=== PATIENT | female | born 1965 | race Caucasian/White ===

== ENCOUNTER 2016-11-02 06:14 | Inpatient (IN) | payer BC ==
--- NOTE | 2016-10-14 18:41 | HP ---
ADMISSION HISTORY AND PHYSICAL: DATE OF ADMISSION: 11/02/16 ATTENDING SURGEON: Dr. John العراقي. (dictated by MONCHO Jaramillo) CHIEF COMPLAINT: Morbid obesity. HISTORY OF PRESENT ILLNESS: This is a 51-year-old female, who presented to our office in April of 2016 for initial bariatric evaluation. Her weight and dietary history are outlined in her chart record. She has completed medically supervised weight loss through [facility] in our office utilizing the HMR program with resultant 40 pounds' weight loss. She has undergone full bariatric profile and lab profile, which showed a normal TSH and morning cortisol. Her other labs were also within normal ranges. She underwent EGD on 08/20/16 showing very mild gastritis and a a very small hiatal hernia with the biopsy CLOtest negative. She has met with Dr. العراقي on a number of occasions. He has reviewed with her the indications for surgery, the risks, benefits, and alternatives. She understands the expected perioperative course and has seen the dietitian for preoperative diet instruction. She would like to proceed as scheduled with laparoscopic Dennis-en-Y gastric bypass. PAST MEDICAL HISTORY: Morbid obesity, hypertension, type 2 diabetes, sleep- related hypopnea (did not tolerate CPAP), hypothyroidism, depression, osteoarthritis, retinal detachment. PAST SURGICAL HISTORY: She has had bilateral retinal surgeries, opening cholecystectomy in 1986, and , tonsillectomy, and wisdom teeth removal. No reported surgical or anesthesia complications. CURRENT MEDICATIONS: 1. Levothyroxine 137 mcg once daily. 2. Lisinopril/hydrochlorothiazide 10/25 once daily. 3. Fluoxetine 20 mg 3 tablets q.a.m. 4. Metformin 500 mg 2 tablets q.p.m. 5. Vitamin B12 250 mcg q. day. 6. Vitamin D3 2000 International Units once daily. 7. Methylphenidate 20 mg 2 tablets q.a.m., 1 tablet q.3 p.m. DRUG ALLERGIES: None known. FAMILY HISTORY: Negative for anesthesia problems, bleeding or clotting disorders. SOCIAL HISTORY: The patient is . 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 She denies use of tobacco, drinks alcohol rarely, and denies other drug use. REVIEW OF SYSTEMS: General: No recent constitutional symptoms or acute illnesses. Cardiovascular: She is treated for hypertension. No history of chest pain, MO, angina, or heart murmur. Respiratory: No history of asthma, chronic cough, or shortness of breath. She does have untreated sleep-related hypopnea. GI: No GERD symptoms. No lower GI symptoms. Colonoscopy done at age 49, which was a normal study with recommended 10-year followup. : No problems reported. SYS DIR: She is up-to-date within the past year for her breast exam and mammogram both reportedly normal and within the past 1 to 2 years for pelvic exam and Pap smear both normal. Endocrine: Type 2 diabetes with improvement since weight loss with most recent A1c of 5.1. She does not do fingersticks at home. She is also treated for hypothyroidism, on chronic replacement. Neuropsych: No additions to above. Musculoskeletal: No additions to above. PHYSICAL EXAMINATION GENERAL: Well-nourished, morbidly obese female, in no acute distress. VITAL SIGNS: Height 62.5 inches, weight 258 pounds, BMI 46.4. Blood pressure 130/82, pulse 72, respirations 16. HEENT: Pupils equal and round, reactive. EOMs intact. No conjunctival pallor. Oropharynx: Teeth in good repair. No intraoral lesions. NECK: No lymphadenopathy, thyromegaly, or masses. LUNGS: Clear to auscultation. No wheezes. HEART: Regular rate and rhythm. No murmur. BREASTS: Not examined. ABDOMEN: Well-healed right subcostal incision. Soft, nontender to palpation. No palpable masses or organomegaly, although exam somewhat limited by body habitus. GENITALIA AND RECTAL: Not done. BACK: No spinous process or CVA tenderness. EXTREMITIES: No edema. NEUROLOGICAL: Grossly intact. SKIN: Warm and dry. No suspicious rashes or lesions. IMPRESSION: Morbid obesity. PLAN: Laparoscopic Dennis-en-Y gastric bypass. MONCHO CARROLL CC: Dr. Love Hernandez; Dr. Ayaka Vásquez * [id number]/[facility] #: [id number] MTDD
[~2016-11-02 06:14] MED LIST: Buffered Lidocaine 1% SYRIN* 3 ML/SYR SYRINGE INTRADERM ONE; Dexamethasone IV* 4 MG/ML 1 ML (4 MG) IV SLOW PU ONE; Famotidine IV* 10 MG/ML 2 ML (20 mg) IV ONE
[2016-11-02] MEDS ORDERED: Clindamycin 900 MG IVPREMIX(* 900 MG/50 ML SDV IV ONE (09:09)
[2016-11-02] MEDS ORDERED: Dexamethasone IV* 4 MG/ML 1 ML (4 MG) ONE (09:09)
[2016-11-02] MEDS ORDERED: ceFAZolin 2 GM PREMIX(*) 2 GM/50 ML BAG IVPB ONE (09:09)
[2016-11-02] MEDS ORDERED: Famotidine IV* 10 MG/ML 2 ML (20 mg) ONE (09:09)
[2016-11-02] MEDS ORDERED: Heparin VIAL(*) 5000 UNITS/ML VIAL (FIVE THOUSAND) ONE (09:09)
[2016-11-02 09:21] LABS: Manual Entry Verification HAN0055; UR Preg Internal Control QC Line Present
[2016-11-02] MEDS ORDERED: Methylene Blue 0.5 %* 50 MG/10 ML AMP IV ONE (10:52)
[2016-11-02] MEDS ORDERED: fentaNYL* 50 MCG/ML 2 ML VIAL (100 MCG VIAL) IV PRN (13:00)
[2016-11-02] MEDS ORDERED: Scopolamine 1.5 mg* PATCH TRANSDERM PRN (13:00)
[2016-11-02] MEDS ORDERED: Ondansetron INJ* 2 MG/ML VIAL IV PRN ×2 (13:00→14:01)
[2016-11-02] MEDS ORDERED: HYDROmorphone* 1 MG/ML 1 ML SYR IV PRN ×3 (13:00→14:01)
[2016-11-02] MEDS ORDERED: DiMENhydriNATE IV* 50 MG/ML VIAL IV PUSH PRN (13:00)
--- NOTE | 2016-11-02 14:00 | PN ---
Progress Note - Progress Note Note: Brief Operative Note: Preop and Postop Dxs: Morbid Obesity Procedure: Laparoscopic Dennis En Y Gastric Bypass Anesthesia: GET Surgeon: Dulce Maria Asst: MOCNHO Foreman EBL: < 100 ml Fluids: 2300 ml RL Drains: none Specimen: none Findings: dictated
[2016-11-02] MEDS ORDERED: Acetaminophen ADULT LIQ* 650 MG/20.3 ML UDC PO PRN (14:01)
[2016-11-02] MEDS ORDERED: HYDROcodone/ACET. 7.5/325 LIQ* 15 ML UDC PO PRN (14:01)
[2016-11-02] MEDS ORDERED: HYDROmorphone* 1 MG/ML 1 ML SYR ONE (14:28)
[2016-11-02] MEDS ORDERED: Famotidine IV* 10 MG/ML 2 ML (20 mg) IV SLOW PU SCH (18:00)
[2016-11-02] MEDS: Ketorolac INJ* 30 MG/ML 1 ML VIAL IV PRN (18:27)
[2016-11-02] MEDS: Famotidine IV* 10 MG/ML 2 ML (20 mg) IV SLOW PU SCH (19:31)
[2016-11-02] MEDS: Heparin VIAL(*) 5000 UNITS/ML VIAL (FIVE THOUSAND) SUBCUT SCH (21:31)
[2016-11-03] MEDS: Ketorolac INJ* 30 MG/ML 1 ML VIAL IV PRN ×3 (00:30→14:30)
--- NOTE | 2016-11-03 04:09 | OP ---
DATE OF OPERATION: 11/02/16 - ROOM #351 DATE OF : 63 SURGEON: John العراقي MD MOTION STUDY TECHNICIAN: MONCHO Jaramillo ANESTHESIOLOGIST: Kulwant Davis MD ANESTHESIA: General. PREOP DIAGNOSIS: Morbid obesity. POSTOP DIAGNOSIS: Morbid obesity. OPERATIVE PROCEDURE: Laparoscopic Dennis-en-Y gastric bypass. ESTIMATED BLOOD LOSS: Minimal. IV FLUIDS: 2.3 L of crystalloids. SPECIMEN: None. DRAINS: None. COMPLICATIONS: None. COUNTS: The instrument, needle, and sponge counts were correct. DESCRIPTION OF PROCEDURE: The patient was brought to the operating room and placed on the table supine. Sequential compression devices were placed on both lower extremities. General anesthesia was administered. The abdomen was prepped and draped in the usual sterile fashion and a time-out was performed. Local anesthetic was infiltrated into the skin and soft tissue prior to making each incision. Accessing the abdominal cavity through a left upper quadrant incision with a 12-mm optical trocar, carbon dioxide was insufflated to a pressure of 15 mmHg. Under direct visualization, a 12-mm bladeless trocar was placed in supraumbilical midline and in the right upper quadrant. 5 mm trocars were placed in the right upper quadrant medially and through a previous scar in the left upper quadrant laterally. There were numerous adhesions of the omentum in the right upper quadrant from previous open cholecystectomy and adhesiolysis was performed with LigaSure. A Benjamín liver retractor was placed percutaneously in the subxiphoid position and used to elevate the left lobe of the liver. The gastric anatomy appeared normal. The fundus of the stomach was mobilized away from the left arturo of the diaphragm and then perigastric dissection was undertaken in the lesser curvature to enter the lesser sac. The gastric pouch was fashioned with several firings of the Endo VANESSA stapler with arcos cartridges initiating this with a transverse firing with 45 mm cartridge and then vertical firings to the angle of His with the 60 mm arcos cartridges. Staple lines were noted to be intact and hemostatic. The omentum was retracted superiorly along with transverse colon and the ligament of Treitz was identified. The jejunum was measured out at 40 to 50 cm and then it was brought in proximity to the gastric pouch where it was sutured to the left lateral aspect of the pouch with 2-0 silks. The correct orientation of the bowel was ensured. A gastrojejunal anastomosis was then performed with a 30 mm arcos cartridge and the common gastroenterotomy was run closed with 3-0 Maxon. The jejunal limb was divided with the endo VANESSA stapler to the left of the gastric pouch to complete the anastomosis. The anastomosis was then tested with methylene blue dye instilled to the orogastric tube. No leak was identified. However, it was decided to place an additional 3-0 silk over the Maxon suture line on the more distal aspect. The Dennis limb was then measured at 75 cm. At this point, the functional end-to-side jejunostomy was created with a 16 mm arcos cartridge. The common enterotomy was again closed with 3-0 Maxon and the mesenteric defect was closed with 3-0 silk running. Hemostasis was assured and Benjamín liver retractor and ports were removed under direct visualization. Carbon dioxide was released. The skin incision was closed with holland. Dressings were applied. The patient was extubated uneventfully and transferred to recovery room in stable condition. [id number]/[facility] #: [id number] ILDA
[2016-11-03] MEDS: Heparin VIAL(*) 5000 UNITS/ML VIAL (FIVE THOUSAND) SUBCUT SCH ×3 (05:53→22:03)
[2016-11-03] MEDS: Famotidine IV* 10 MG/ML 2 ML (20 mg) IV SLOW PU SCH ×2 (08:03→21:59)
--- NOTE | 2016-11-03 09:19 | PN ---
Progress Note - Progress Note Note: Surgery Progress: S: POD #1. No N/V. Pain controlled w/ Toradol. Ambulating well. Req'd 2 LR boluses last night. O: Vital Signs - 8 hr 11/03/16 11/03/16 11/03/16 02:31 03:51 07:26 Temperature 98.1 F 98.1 F Pulse Rate 50 48 Respiratory 19 18 Rate Blood Pressure 123/58 116/58 (mmHg) O2 Sat by Pulse 98 94 95 Oximetry 11/03/16 08:00 Temperature Pulse Rate Respiratory 18 Rate Blood Pressure (mmHg) O2 Sat by Pulse 95 Oximetry Intake and Output Last 24 Hours 11/01/16 11/02/16 11/03/16 11/04/16 06:59 06:59 06:59 06:59 Intake Total 6378 Output Total 350 Balance 6028 Weight 249 lb 9.6 oz Intake: IV Fluids 6378 CLINDAMYCIN 900 MG 50 LR 6278 NS 50ML, Cefazolin 2G 50 Oral 0 Output: Urine 100 Jacobs 250 There is about 200 ml urine in the bag this a.m. (~ 3hrs). Heart: sl nery Lungs: clear Abd: +BS; dressings dry. Soft, mild incisional tenderness. A: s/p RYGB; low UOP, but appears to be picking up; mild bradycardia (will monitor) P: discussed w/ Dr. العراقي; d/c jacobs; start radha clears; monitor UOP
[2016-11-03 10:18] LABS: Hematocrit 34 % (35-47); Hemoglobin 11.5 g/dl (12.0-16.0); Mean Corpuscular HGB Conc 34 g/dl (31-36); Mean Corpuscular Hemoglobin 29 pg (27-31); Mean Corpuscular Volume 87 fL (80-97); Mean Platelet Volume 9 um3 (7.4-10.4); Red Blood Count 3.95 10^6/ul (4.0-5.4); Red Cell Distribution Width 13 % (10.5-15); White Blood Count 9.1 10^3/ul (3.5-10.8)
[2016-11-03 10:38] LABS: BUN/Creatinine Ratio 21.7 (8-20); Calcium 9.2 mg/dL (8.6-10.3); EGFR African American 60.7 (>60); EGFR Non-African American 47.2 (>60); Potassium 4.3 mmol/L (3.5-5.0)
[2016-11-03] MEDS: D5W 1/2 NS KCl 20 Meq 1000 ML* 1,000 ML IV SCH (14:44)
[2016-11-03] MEDS ORDERED: Hetastarch 6%* GIVE 500 ML IV ONE (17:00)
[2016-11-04] MEDS: D5W 1/2 NS KCl 20 Meq 1000 ML* 1,000 ML IV SCH ×2 (02:45→09:34)
[2016-11-04] MEDS: Heparin VIAL(*) 5000 UNITS/ML VIAL (FIVE THOUSAND) SUBCUT SCH (06:13)
[2016-11-04 07:08] LABS: Hematocrit 31 % (35-47); Hemoglobin 10.2 g/dl (12.0-16.0); Mean Corpuscular HGB Conc 33 g/dl (31-36); Mean Corpuscular Hemoglobin 29 pg (27-31); Mean Corpuscular Volume 88 fL (80-97); Mean Platelet Volume 9 um3 (7.4-10.4); Red Cell Distribution Width 13 % (10.5-15); White Blood Count 5.4 10^3/ul (3.5-10.8)
[2016-11-04 07:36] LABS: BUN/Creatinine Ratio 23.7 (8-20); Calcium 8.5 mg/dL (8.6-10.3); EGFR African American 77.6 (>60); EGFR Non-African American 60.3 (>60); Potassium 4.1 mmol/L (3.5-5.0)
[2016-11-04] MEDS: Famotidine IV* 10 MG/ML 2 ML (20 mg) IV SLOW PU SCH (08:18)
--- NOTE | 2016-11-04 09:04 | PN ---
Progress Note - Progress Note SOAP: Subjective:tolerating po,walking in halls,good pain control,passing flatus [] Objective: Vital Signs Temp 97.5 F 11/04/16 07:10 Pulse 48 11/04/16 07:10 Resp 16 11/04/16 08:00 BP 106/58 11/04/16 07:10 Pulse Ox 92 11/04/16 07:10 Intake & Output 11/03/16 11/04/16 11/04/16 18:59 06:59 18:59 Intake Total 465 1685 828 Output Total 185 650 200 Balance 280 1035 628 Intake: IV Fluids 285 1205 828 [id number] 285 705 828 Hetastarch 500 Oral 180 480 Output: Urine 110 650 200 Mora 75 Abnormal Lab Results 11/03/16 11/03/16 11/03/16 10:02 10:02 17:47 WBC 9.1 RBC 3.95 L Hgb 11.5 L Hct 34 L MCV 87 MCH 29 MCHC 34 RDW 13 Plt Count 218 MPV 9 Neut % (Auto) 69.9 Lymph % (Auto) 21.9 L [place] % (Auto) 7.4 Eos % (Auto) 0.2 Baso % (Auto) 0.6 Absolute Neuts (auto) 6.4 Absolute Lymphs (auto) 2.0 Absolute Monos (auto) 0.7 Absolute Eos (auto) 0 Absolute Basos (auto) 0.1 Absolute Nucleated RBC 0.01 CBC Comment Nucleated RBC % 0.1 Sodium 136 Potassium 4.3 Chloride 103 Carbon Dioxide 26 Anion Gap 7 BUN 26 H Creatinine 1.20 H Est GFR ( Amer) 60.7 Est GFR (Non-Af Amer) 47.2 BUN/Creatinine Ratio 21.7 H Glucose 105 H POC Glucose (mg/dL) 122 H Calcium 9.2 11/04/16 11/04/16 11/04/16 05:35 05:35 06:51 WBC Cancelled 5.4 RBC Cancelled 3.50 L Hgb Cancelled 10.2 L Hct Cancelled 31 L MCV Cancelled 88 MCH Cancelled 29 MCHC Cancelled 33 RDW Cancelled 13 Plt Count Cancelled 158 MPV Cancelled 9 Neut % (Auto) Cancelled 45.1 Lymph % (Auto) Cancelled 44.1 [place] % (Auto) Cancelled 7.5 Eos % (Auto) Cancelled 2.9 Baso % (Auto) Cancelled 0.4 Absolute Neuts (auto) Cancelled 2.4 Absolute Lymphs (auto) Cancelled 2.4 Absolute Monos (auto) Cancelled 0.4 Absolute Eos (auto) Cancelled 0.2 Absolute Basos (auto) Cancelled 0 Absolute Nucleated RBC Cancelled 0 CBC Comment Cancelled Nucleated RBC % Cancelled 0 Sodium Cancelled Potassium Cancelled Chloride Cancelled Carbon Dioxide Cancelled Anion Gap Cancelled BUN Cancelled Creatinine Cancelled Est GFR ( Amer) Cancelled Est GFR (Non-Af Amer) Cancelled BUN/Creatinine Ratio Cancelled Glucose Cancelled POC Glucose (mg/dL) Calcium Cancelled 11/04/16 06:51 WBC RBC Hgb Hct MCV MCH MCHC RDW Plt Count MPV Neut % (Auto) Lymph % (Auto) [place] % (Auto) Eos % (Auto) Baso % (Auto) Absolute Neuts (auto) Absolute Lymphs (auto) Absolute Monos (auto) Absolute Eos (auto) Absolute Basos (auto) Absolute Nucleated RBC CBC Comment Nucleated RBC % Sodium 136 Potassium 4.1 Chloride 107 Carbon Dioxide 27 Anion Gap 2 BUN 23 Creatinine 0.97 H Est GFR ( Amer) 77.6 Est GFR (Non-Af Amer) 60.3 BUN/Creatinine Ratio 23.7 H Glucose 121 H POC Glucose (mg/dL) Calcium 8.5 L lungs:clear bilat;heart:RRR,no murmur;abd+bs,soft,incisions intact with dressings,no erythema;extnontender;uo from [id number] [] Assessment:POD#2,doing well,uo improving;needs to meet po intake criteria [] Plan:possible discharge later,update Dr العراقي []
[2016-11-04 11:40] VITALS: BP 116/59
--- NOTE | 2016-11-04 22:32 | DS ---
DISCHARGE SUMMARY: DATE OF ADMISSION: 11/02/16 DATE OF DISCHARGE: 11/04/16 ATTENDING PHYSICIAN: Dr. John العراقي. (DICTATED BY SIN HAILE NP) HOSPITAL COURSE: Please refer to admission history and physical for admission details. The patient was taken to the operating room on 11/02/16 and underwent laparoscopic Dennis-en-Y gastric bypass. She has had an eventful postoperative course and as of the afternoon of discharge, she was tolerating 120 mL of clear liquids per hour, her pain was well controlled and she was urinating in large amounts and ambulating in the gatica. PHYSICAL EXAMINATION: Vital Signs: Temperature 97.6, blood pressure 116/60, pulse 54 and regular, respiratory rate 16, O2 saturation on room air 99%. Lungs : Breath sounds bilaterally clear and equal. Heart: Regular rate and rhythm. No murmurs or rubs. Abdomen: Active bowel sounds, soft. Laparoscopic incision sites clean, dry and intact. No erythema or drainage. IMPRESSION: Status post laparoscopic Dennis-en-Y gastric bypass, doing very well. PLAN: Discharge home today; discharge instructions were reviewed with the patient. All of her medications were reviewed and she understands which medications to hold at this time. She will follow the prescribed bariatric dietary guidelines and she will setup a followup office appointment within 1 week. SIN HAILE NP [id number]/[facility] #: [id number]
[2016-11-05] MEDS ORDERED: Scopolomine PATCH Remove* 1 NOTE MISC PATCH OFF ONE (13:01)
== END 2016-11-04 11:55 | disposition home or self-care (01) | DRG 403 ==
LOC: AA 09:11 → SSU 14:01
PROVIDERS: ADMIT Surgery; ATTEND Surgery
PROC: 0D164ZA Bypass Stomach to Jejunum, Percutaneous Endoscopic Approach (ICD-10-PCS; principal; 2016-11-02 10:45)
DX: E66.01 Morbid (severe) obesity due to excess calories (principal); I10 Essential (primary) hypertension; E11.9 Type 2 diabetes mellitus without complications; E03.9 Hypothyroidism, unspecified; F32.9 Major depressive disorder, single episode, unspecified; M19.90 Unspecified osteoarthritis, unspecified site; R00.1 Bradycardia, unspecified; G47.33 Obstructive sleep apnea (adult) (pediatric); Z68.42 Body mass index [BMI] 45.0-49.9, adult
CPT/HCPCS: 36415; 80048; 81025; 85025; A9270-GY; C1776; J0690; J1100; J1170; J1644; J1885; J2405